=== PATIENT | female | born 1945 | race Caucasian/White ===

== ENCOUNTER 2017-03-24 12:30 | Outpatient (CLI) | payer MEDICARE ==
--- NOTE | 2017-03-24 16:41 | MRI ---
CERVICAL SPINE MRI WITHOUT CONTRAST: 03/24/17 INDICATION: Ataxia. No prior comparison. FINDINGS: Vertebral body heights and alignment are preserved. Degenerative hypertrophy at C1-2 level with effa cement of ventral CSF present. C2-3: No high grade central canal or foraminal stenosis. C3-4: No significant central canal stenosis. There is asymmetric right side facet osteoarthritis as well as uncinate process hypertrophy which results in moderate right foraminal stenosis. There is mi nimal narrowing of the left neural foramen. C4-5: Bilateral facet hypertrophy is present with mild uncinate process hypertrophy resulting in mil d bilateral neural foraminal narrowing. No significant central canal stenosis. C5-6: There is no significant central canal or neural foraminal stenosis. C6-7: Broad based disc osteophyte complex is present with mild central canal stenosis and moderate b ilateral neural foraminal stenosis. C7-T1: No significant central canal or foraminal stenosis. Cervical spinal cord reveals appropriate caliber and signal intensity. IMPRESSION: Degenerative changes of the cervical spine is most pronounced at the C6-7 level due to a broad based disc osteophyte complex resulting in mild central canal and moderate bilateral neural foraminal fady nosis with ventral cord effacement. POS: [facility]
== END 2017-03-24 12:31 | disposition home or self-care (01) ==
LOC: SCSMRI 12:30
PROVIDERS: ATTEND Psychiatry & Neurology Neurology
DX: R27.0 Ataxia, unspecified (principal); M47.812 Spondylosis without myelopathy or radiculopathy, cervical region; M48.02 Spinal stenosis, cervical region
CPT/HCPCS: 72141

== ENCOUNTER 2017-10-25 07:28 | Emergency (ER) | payer MEDICARE ==
[2017-10-25 08:11] LABS: #Eosinphils 0.2 thou/uL (0.0-0.7); #Lymphocytes 3.2 thou/uL (1.20-3.40); #Monocytes 0.6 thou/uL (0.11-0.59); #Neutrophils 4.7 thou/uL (1.40-6.50); %Basophils 0.3 % (0.0-1.0); %Eosinophils 1.9 % (0.0-10.0); %Lymphocytes 36.7 % (21.0-51.0); %Monocytes 7.2 % (0.0-10.0); %Neutrophils 53.9 % (42.0-75.0); Hemoglobin 14.1 g/dL (12.0-16.0); Mean Corpuscular HGB CONC 34.5 g/dL (32.0-36.0); Mean Platelet Volume 8.4 fL (7.4-10.4); Platelet Count 252 thou/uL (130-400); RBC Distribution Width 12.3 % (11.5-14.5); Red Blood Cell (RBC) Count 4.55 mill/uL (4.20-5.40); White Blood Cell (WBC) Count 8.6 thou/uL (4.8-10.8)
[2017-10-25 08:28] LABS: ALT (SGPT) 18 U/L (8-55); AST (SGOT) 20 U/L (5-34); Albumin 4.3 g/dL (3.4-4.8); Alkaline Phosphatase 84 U/L (40-150); Anion Gap 15 mmol/L (10-20); BUN (Urea Nitrogen) 14 mg/dL (9.8-20.1); Bilirubin, Total 0.8 mg/dL (0.2-1.2); Calc. Creatinine Clearance 0 mL/min (70-130); Carbon Dioxide 28 mmol/L (23-31); Chloride 104 mmol/L (98-107); Estimated GFR-MDRD 84; Globulin 3.6 g/dL (2.4-3.5); Glucose 121 mg/dL (80-115); Lipase 25 U/L (8-78); Magnesium 2.5 mg/dL (1.6-2.6); Potassium 4.2 mmol/L (3.5-5.1); Protein, Total 7.9 g/dL (6.0-8.3); Sodium 143 mmol/L (136-145)
[2017-10-25 08:32] LABS: CKMB 0.7 ng/mL (0-6.6); Troponin I Less than 0.010 ng/mL (< 0.028)
--- NOTE | 2017-10-25 09:12 | RAD ---
CHEST ONE VIEW: History: Chest pain. Comparison: 11-18-16 FINDINGS: Cardiac silhouette is magnified by projection. Pulmonary vasculature unremarkable. Mediastinum is mid line with aortic calcification. No lobar consolidation or evidence of pneumothorax. hydrologic modeler l maisha overlie the chest. IMPRESSION: Atherosclerosis. No active cardiopulmonary abnormalities are otherwise demonstrated. POS: [facility]
== END 2017-10-25 10:11 | disposition home or self-care (01) ==
LOC: ERS 07:28
DX: R00.2 Palpitations (principal); J45.909 Unspecified asthma, uncomplicated; Z79.899 Other long term (current) drug therapy; Z79.82 Long term (current) use of aspirin
CPT/HCPCS: 71045; 80053; 82553; 83690; 83735; 84484; 85025; 93005; 96360

== ENCOUNTER 2018-02-23 13:19 | Outpatient (CLI) | payer MEDICARE ==
--- NOTE | 2018-02-23 14:49 | MMO ---
BILATERAL SCREENING MAMMOGRAM 02/23/18 COMPARISON: 12/14/16, 09/21/15. HISTORY: 72-year-old female. Routine screening mammography. TECHNIQUE: CC and MLO views of both breasts are submitted for interpretation. This patient's mammogram is review ed with the assistance of computer aided detection. FINDINGS: The breast are predominantly fatty replaced. Bilaterally, no suspicious dominant mass, architectural distortion, or suspicious calcifications. Benign appearing calcifications in the right breast. IMPRESSION: BIRADS 2: Benign Finding(s) RECOMMENDATIONS: Routine annual screening mammography (for women over age 40). POS: [facility]
== END 2018-02-23 13:20 | disposition home or self-care (01) ==
LOC: SCSMAMMO 13:19
PROVIDERS: ATTEND Family Medicine
DX: Z12.31 Encounter for screening mammogram for malignant neoplasm of breast (principal)
CPT/HCPCS: 77067

== ENCOUNTER 2018-03-04 18:20 | Emergency (ER) | payer MEDICARE ==
[~2018-03-04 18:20] MED LIST: ISOVUE-370 76%-LOCM 1 ML ONE
[2018-03-04 19:05] LABS: #Eosinphils 0.1 thou/uL (0.0-0.7); #Lymphocytes 3.2 thou/uL (1.20-3.40); #Monocytes 0.7 thou/uL (0.11-0.59); #Neutrophils 8.3 thou/uL (1.40-6.50); %Basophils 0.4 % (0.0-1.0); %Eosinophils 0.5 % (0.0-10.0); %Lymphocytes 25.8 % (21.0-51.0); %Monocytes 5.8 % (0.0-10.0); %Neutrophils 67.5 % (42.0-75.0); Mean Corpuscular HGB CONC 33.2 g/dL (32.0-36.0); Mean Corpuscular Hemoglobin 29.7 pg (27.0-31.0); Mean Corpuscular Volume 89.5 fL (78.0-98.0); Platelet Count 290 thou/uL (130-400); RBC Distribution Width 12.3 % (11.5-14.5); Red Blood Cell (RBC) Count 4.37 mill/uL (4.20-5.40); White Blood Cell (WBC) Count 12.3 thou/uL (4.8-10.8)
[2018-03-04] MEDS ORDERED: Ondansetron HCl/PF 4 MG/2 ML Vial ONE (19:25)
[2018-03-04 19:26] LABS: ALT (SGPT) 15 U/L (8-55); AST (SGOT) 14 U/L (5-34); Albumin 4.4 g/dL (3.4-4.8); Alkaline Phosphatase 80 U/L (40-150); Anion Gap 13 mmol/L (10-20); BUN (Urea Nitrogen) 15 mg/dL (9.8-20.1); Bilirubin, Total 0.7 mg/dL (0.2-1.2); Calc. Creatinine Clearance 0 mL/min (70-130); Calcium 9.8 mg/dL (7.8-10.44); Carbon Dioxide 29 mmol/L (23-31); Chloride 98 mmol/L (98-107); Estimated GFR-MDRD 90; Globulin 3.5 g/dL (2.4-3.5); Glucose 107 mg/dL (80-115); Lipase 9 U/L (8-78); Potassium 3.7 mmol/L (3.5-5.1); Protein, Total 7.9 g/dL (6.0-8.3); Sodium 136 mmol/L (136-145)
[2018-03-04 20:29] LABS: Bilirubin Negative (Negative); Blood, Urine Negative (Negative); Clarity CLEAR (Clear); Glucose, Urine (Dipstick) Negative (Negative); Leukocyte Negative (Negative); Nitrite Negative (Negative); Protein, Urine (Dipstick) Negative (Neg-Trace); Specific Gravity, Urine 1.003 (1.002-1.036); Urobilinogen 0.2 mg/dL (0.2-1.0)
--- NOTE | 2018-03-05 07:41 | CT ---
CT ABDOMEN WITH CONTRAST CT PELVIS WITH CONTRAST: DATE: 03/04/18. TIME: 10:50 p.m. HISTORY: A 72-year-old female with abdominal pain. Rule out small bowel obstruction. COMPARISON: 01/27/16. TECHNIQUE: IV injection of iodinated contrast media: Isovue. Oral contrast media: Administered. FINDINGS: Again noted is the sausage-shaped, stool-filled dilated segment of proximal sigmoid colon that has a caliber of approximately 7 cm. Immediately distal to this, there is abrupt collapse in the caliber o f the sigmoid colon. The rectum is not distended. Proximal to this, the descending colon is also no t distended. There is a suture line circumferentially around this dilated segment. The appearance i s very similar to that of the previous CT. There is no surrounding fat stranding. No acute colonic diverticulitis. No small bowel dilation. Liver, pancreas, spleen, and adrenals are essentially norm al. No ascites or pneumoperitoneum. Normal urinary bladder. Appendix not identified. Lung bases a re grossly clear. Surgical clips in the gallbladder fossa. There is a 1 cm cyst in the right renal mid-upper pole parenchyma which is minimally larger than previously. Otherwise, the bilateral kidney s are normal. No other interval change overall. No abdominal aortic aneurysm. IMPRESSION: 1. Segment of stool-filled, distended proximal sigmoid colon at surgical site. The appearance is si milar to that of 01/27/16. 2. No small bowel obstruction. 3. Status post cholecystectomy. 4. Small right renal cyst. 5. No major interval change. PIETER Martinez POS: [facility]
== END 2018-03-04 23:42 | disposition home or self-care (01) ==
LOC: ERS 18:20
DX: K59.00 Constipation, unspecified (principal); I10 Essential (primary) hypertension; I48.91 Unspecified atrial fibrillation; Z79.82 Long term (current) use of aspirin; Z79.899 Other long term (current) drug therapy
CPT/HCPCS: 36415; 74177; 80053; 81003; 83690; 85025; 96361; 96374; J2405

== ENCOUNTER 2018-05-30 12:14 | Outpatient (CLI) | payer MEDICARE ==
--- NOTE | 2018-05-30 14:00 | RAD ---
ABDOMEN TWO VIEWS: History: Pain medication for previous surgery. Constipation x four days. FINDINGS: Two views of the abdomen demonstrate a nonspecific bowel gas pattern. There is some scattered fecal m aterial in the colon. No radiographic evidence of constipation. No differential airfluid levels. No s uspicious densities in the abdomen or pelvis. Cholecystectomy clips in the right upper quadrant are n oted. IMPRESSION: Nonspecific bowel gas pattern. No radiographic evidence of constipation. POS: [facility]
== END 2018-05-30 12:15 | disposition home or self-care (01) ==
LOC: BICRAD 12:14
PROVIDERS: ATTEND Physician Assistant Medical
DX: K59.00 Constipation, unspecified (principal)
CPT/HCPCS: 74019